=== PATIENT | female | born 1950 | race Caucasian/White ===

== ENCOUNTER 2019-09-20 10:43 | Emergency (ER) | payer OTHER, MEDICAID ==
[~2019-09-20] VITALS: Ht 157.5 cm; Wt 50.8 kg
[2019-09-20 10:45] VITALS: BP 122/55
--- NOTE | 2019-09-20 10:53 | NUR ---
Patient transferred to bed 1 via wheelchair by caregiver. RN evaluating the patient at bedside.
--- NOTE | 2019-09-20 11:08 | NUR ---
TO ED WITH CAREGIVER WITH C/O WITNESSED SEIZURE. CAREGIVER STATES PT WAS BEING SEEN AT [facility] FOR N/V AND HAD A SEIZURE X 3 AT [facility]RGENT CARE. NO ORAL TRAUMA NOTED. PT IS AT BASELINE PER CAREGIVER. PT TRANSFERED FROM W/C TO BED AND SEIZURE PRECAUTIONS IMPLEMENTED. IN BED FOR MD BAZZI.
[2019-09-20] MEDS ORDERED: NACL 0.9% 1,000 ML IV ONE (11:20)
[2019-09-20] MEDS ORDERED: ONDANSETRON 4 MG/2 ML VIAL IVP ONE (11:20)
[2019-09-20 11:45] LABS: BASOPHILS % (AUTO) 0.3 % (0.0-2.0); EOSINOPHILS # (AUTO) 0.2 K/uL (0-0.4); EOSINOPHILS % (AUTO) 3.8 % (0.0-4.0); HEMATOCRIT 37.6 % (36-48); HEMOGLOBIN 12.3 g/dL (12.0-16.0); LYMPHOCYTES # (AUTO) 1.7 K/uL (2.5-16.5); LYMPHOCYTES % (AUTO) 31.9 % (20.5-51.1); MEAN CORPUSCULAR HEMOGLOBIN 31 pg (27-31); MEAN CORPUSCULAR HGB CONC 33 g/dL (33-37); MEAN CORPUSCULAR VOLUME 94.3 fL (80-94); MONOCYTES # (AUTO) 0.5 K/uL (0.8-1.0); MONOCYTES % (AUTO) 8.7 % (1.7-9.3); NEUTROPHILS # (AUTO) 2.9 K/uL (1.8-7.7); NEUTROPHILS % (AUTO) 55.3 % (42.2-75.2); PLATELET COUNT (AUTO) 340 K/uL (140-450); RED BLOOD CELL COUNT(AUTO) 3.99 MIL/uL (4.20-5.40); RED CELL DISTRIBUTION WIDTH 12.3 % (11.6-13.7); WHITE BLOOD COUNT (AUTO) 5.2 K/uL (4.8-10.8)
[2019-09-20 12:09] LABS: PROTHROMBIN TIME 9.7 secs (10.8-13.4)
[2019-09-20] MEDS ORDERED: BENA10TA17 PO (12:19)
[2019-09-20] MEDS ORDERED: CLOP75TA55 PO (12:19)
[2019-09-20] MEDS ORDERED: [UNRECOGNIZED DRUG - CODE] PO (12:19)
[2019-09-20] MEDS ORDERED: LEVO100P IV (12:19)
[2019-09-20] MEDS ORDERED: CARB200T4 PO (12:19)
[2019-09-20] MEDS ORDERED: VITD400 PO (12:19)
[2019-09-20] MEDS ORDERED: ACET-2619 PO (12:19)
[2019-09-20] MEDS ORDERED: BEN50 PO (12:19)
[2019-09-20] MEDS ORDERED: POLY1POW MC (12:19)
[2019-09-20] MEDS ORDERED: DIAZ1KIT2 RC (12:19)
[2019-09-20] MEDS ORDERED: LAM200 PO (12:19)
[2019-09-20] MEDS ORDERED: CARB400T PO (12:19)
[2019-09-20] MEDS ORDERED: DOCU100C16 PO (12:19)
[2019-09-20] MEDS ORDERED: ASPI-1718 PO (12:19)
[2019-09-20] MEDS ORDERED: ATOR20TA PO (12:19)
[2019-09-20 12:25] LABS: ANION GAP 16.1 (8-16); CARBON DIOXIDE 27.9 mmol/L (21-32)
[2019-09-20 12:26] LABS: CREATININE 1.2 mg/dL (0.6-1.3); TOTAL BILIRUBIN 0.4 mg/dL (0.0-1.0)
[2019-09-20 12:27] LABS: ALBUMIN 3.6 g/dL (3.4-5.0)
--- NOTE | 2019-09-20 14:37 | NUR ---
IN BED, CAREGIVER AT BEDSIDE. REMAINS CALM AND COOPERATIVE.
[2019-09-20 14:49] VITALS: BP 131/74
--- NOTE | 2019-09-20 14:49 | NUR ---
Note undone in EDM - 09/20/19 at 1450 by JARAD Patient discharged with v/s stable. Written and verbal after care instructions given and explained. Patient alert, oriented and verbalized understanding of instructions. Ambulatory with steady gait. All questions addressed prior to discharge. ID band removed. Patient advised to follow up with PMD. Rx of PROMETHAZINE given. Patient educated on indication of medication including possible reaction and side effects. Opportunity to ask questions provided and answered.
--- NOTE | 2019-09-20 14:49 | NUR ---
IV removed, catheter intact and site benign. Applied folded 4x4 gauze and tape to stop bleeding.
--- NOTE | 2019-09-20 14:50 | NUR ---
Patient discharged with v/s stable. Written and verbal after care instructions given and explained. Patient alert, oriented and verbalized understanding of instructions. Wheel Chair Assisted with by caregiver. All questions addressed prior to discharge. ID band removed. Patient advised to follow up with PMD. Rx of PROMETHAZINE given. Patient educated on indication of medication including possible reaction and side effects. Opportunity to ask questions provided and answered.
[2019-10-06] MEDS ORDERED: CARB300C8 PO (17:51)
== END 2019-09-20 14:50 ==
LOC: MED 10:43
DX: G40.909 Epilepsy, unspecified, not intractable, without status epilepticus (principal); R11.2 Nausea with vomiting, unspecified; F73 Profound intellectual disabilities; R14.0 Abdominal distension (gaseous); E03.9 Hypothyroidism, unspecified; Z79.899 Other long term (current) drug therapy; Z79.01 Long term (current) use of anticoagulants; Z79.82 Long term (current) use of aspirin
CPT/HCPCS: 36415; 70450; 71045; 80053; 80156; 83690; 84484; 85025; 85610; 85730; 93005; 96361; 96374; 99284; J2405; J7030; Q0092; C1758

== ENCOUNTER 2019-10-04 11:04 | Emergency (ER) | payer OTHER, MEDICAID ==
[~2019-10-04] VITALS: Ht 152.4 cm; Wt 46.3 kg
[~2019-10-04 11:04] MED LIST: ACET-2619 PO; ASPI-1718 PO; ATOR20TA PO; BEN50 PO; BENA10TA17 PO; CARB200T4 PO; CARB400T PO; CLOP75TA55 PO; DIAZ1KIT2 RC; DOCU100C16 PO; LAM200 PO; LEVO100P IV; POLY1POW MC; VITD400 PO; [UNRECOGNIZED DRUG - CODE] PO
[2019-10-04 11:21] VITALS: BP 129/56
--- NOTE | 2019-10-04 11:26 | NUR ---
Patient transferred to bed 10 via wheelchair by tech. RN evaluating patient at bedside.
--- NOTE | 2019-10-04 11:32 | NUR ---
BIB CAREGIVER WITH C/O LETHARGY, LACK OF APPETITE, AND WEIGHT LOSS. PER CAREGIVER, PT IS WEIGHED EVERY WEEK AND HAS LOST 4 LBS IN LAST WEEK. BOWEL SOUNDS HYPOACTIVE IN ALL 4 QUADRANTS, ABDOMEN FLAT AND SOFT, NON-TENDER TO TOUCH. PT IS INCONTINENT WITH A HX OF UTI'S. PTS ARMS CONTRACTED. USES A WHEELCHAIR. PT RESPONDS TO VERBAL STIMULI, NODS HEAD TO YES AND NO QUESTIONS AND WILL RESPOND IN SHORT SENTENCES.-PER CAREGIVER, THIS IS PT'S BASELINE. VS STABLE. PT IS ALERT AND AWAKE. BED IS DOWN, LOCKED, BED RAIL X 1, ERMD TO SEE PT. HX: SEIZURES, HYPOTHYROID, RENAL CELL CARCINOMA, R NEPHRECTOMY, HYPONATREMIA RX: SEE MED LIST
[2019-10-04] MEDS ORDERED: NACL 0.9% 1,000 ML IV ONE (11:45)
--- NOTE | 2019-10-04 11:45 | NUR ---
LAST BM WAS 10/01/19, PER CAREGIVER
--- NOTE | 2019-10-04 11:57 | NUR ---
STUDENT AND INSTRUCTOR AT BEDSIDE FOR URINE STRAIGHT CATH
--- NOTE | 2019-10-04 12:10 | NUR ---
# 14 FR Urinary catheter inserted utilizing sterile technique. Immediate return of 50 ml ORANGE urine noted. Urine sample collected and sent to lab. Procedure completed by students and instructor.
--- NOTE | 2019-10-04 12:13 | NUR ---
LAB AT BEDSIDE
--- NOTE | 2019-10-04 12:25 | NUR ---
Jaye zepeda in [facility] - 10/04/19 at 1225 by [email or web address] EMT AT [facility]
--- NOTE | 2019-10-04 12:25 | NUR ---
NS STARTED IN PTS L HAND, 24 GAUGE
[2019-10-04 12:38] LABS: BASOPHILS % (AUTO) 0.3 % (0.0-2.0); EOSINOPHILS # (AUTO) 0.5 K/uL (0-0.4); EOSINOPHILS % (AUTO) 9.2 % (0.0-4.0); HEMATOCRIT 36.8 % (36-48); HEMOGLOBIN 12.3 g/dL (12.0-16.0); LYMPHOCYTES # (AUTO) 1.8 K/uL (2.5-16.5); LYMPHOCYTES % (AUTO) 31.9 % (20.5-51.1); MEAN CORPUSCULAR HEMOGLOBIN 31 pg (27-31); MEAN CORPUSCULAR HGB CONC 33 g/dL (33-37); MEAN CORPUSCULAR VOLUME 93.7 fL (80-94); MONOCYTES # (AUTO) 0.5 K/uL (0.8-1.0); MONOCYTES % (AUTO) 8.7 % (1.7-9.3); NEUTROPHILS # (AUTO) 2.9 K/uL (1.8-7.7); NEUTROPHILS % (AUTO) 49.9 % (42.2-75.2); PLATELET COUNT (AUTO) 354 K/uL (140-450); RED BLOOD CELL COUNT(AUTO) 3.93 MIL/uL (4.20-5.40); RED CELL DISTRIBUTION WIDTH 12.5 % (11.6-13.7); WHITE BLOOD COUNT (AUTO) 5.7 K/uL (4.8-10.8)
--- NOTE | 2019-10-04 12:42 | NUR ---
VS STABLE AT THIS TIME. CAREGIVER AT BEDSIDE. NO DISTRESS NOTED
[2019-10-04 12:44] LABS: ANION GAP 11.4 (8-16); CARBON DIOXIDE 30.1 mmol/L (21-32); CREATININE 1.2 mg/dL (0.6-1.3); POTASSIUM 4.5 mmol/L (3.5-5.1)
--- NOTE | 2019-10-04 12:44 | NUR ---
XRAY AT BEDSIDE
[2019-10-04 12:48] LABS: APPEARANCE,URINE CLOUDY (CLEAR); BILIRUBIN,URINE 1+ (NEGATIVE); BLOOD, URINE NEGATIVE (NEGATIVE); COLOR,URINE YELLOW (YELLOW); LEUKOCYTE ESTERASE ,URINE TRACE (NEGATIVE); NITRITE, URINE NEGATIVE (NEGATIVE); PH,URINE 5.5 (5.0-9.0); UGLUCOSE NEGATIVE (NEGATIVE)
[2019-10-04 12:49] LABS: ALBUMIN 3.4 g/dL (3.4-5.0); TOTAL BILIRUBIN 0.2 mg/dL (0.0-1.0)
--- NOTE | 2019-10-04 12:49 | NUR ---
PT GOING TO CT VIA [facility]
--- NOTE | 2019-10-04 13:00 | NUR ---
Patient returned from CT scan. RN re-evaluating patient at bedside.
[2019-10-04 13:04] LABS: RBC,URINE 0-5 /HPF (0-5)
[2019-10-04 13:05] LABS: URINE AMORPHOUS URATE 2+ /HPF (None Seen)
[2019-10-04] MEDS ORDERED: cefTRIAXone 1,000 MG in LIDOCAINE MPF 1% 2.1 ML IM ONE (13:25)
--- NOTE | 2019-10-04 14:32 | NUR ---
Patient discharged with v/s stable. Written and verbal after care instructions given and explained. Patient alert, oriented and verbalized understanding of instructions. Wheel Chair Assisted with by caregiver. All questions addressed prior to discharge. ID band removed. Patient advised to follow up with PMD. Rx of KEFLEX given. Patient educated on indication of medication including possible reaction and side effects. Opportunity to ask questions provided and answered.
[2019-10-04 14:38] VITALS: BP 145/64
== END 2019-10-04 14:32 ==
LOC: MED 11:04
DX: N39.0 Urinary tract infection, site not specified (principal); R41.82 Altered mental status, unspecified; E03.9 Hypothyroidism, unspecified; Z86.69 Personal history of other diseases of the nervous system and sense organs; Z98.890 Other specified postprocedural states; Z79.899 Other long term (current) drug therapy; Z79.01 Long term (current) use of anticoagulants; Z79.82 Long term (current) use of aspirin
CPT/HCPCS: 36415; 70450; 71045; 80053; 81001; 84484; 85025; 87086; 93005; 96361; 96365; 99284; C1758; J0696; J2001; J7030; Q0092

== ENCOUNTER 2019-10-06 16:04 | Inpatient (IN) | payer OTHER, MEDICAID ==
[~2019-10-06] VITALS: Ht 154.9 cm; Wt 47.6 kg
[~2019-10-06 16:04] MED LIST changes: +HYDRAGUARD CREAM TP PRN
[2019-10-06 16:12] VITALS: BP 155/100
--- NOTE | 2019-10-06 16:13 | NUR ---
Pt w/c assisted to bed 1.
[2019-10-06 16:14] VITALS: BP 123/54
--- NOTE | 2019-10-06 16:20 | NUR ---
69 Y/O F PRESENTS TO ER WITH WEB MANAGER C/O BACK PAIN AND LOSS OF APPETITE. WEB MANAGER REPORTS RECENT WEIGHT LOSS AND NOT EATING MUCH. PT WAS SEEN AT [facility] ON 10/04/19 AND DX WITH UTI, RX KEFLEX 500MG. PT IS ABLE TO ANSWER QUESTIONS BY SHAKING HER HEAD YES OR NO QUESTIONS. WHEN ASKED IF PT WAS IN PAIN, PT SHOOK HER HEAD NO. PT HAS INTELLECTUAL DISABILITY. PT IN INCONTINENT AND WEARING BRIEFS. NO SKIN BREAKDOWN NOTED. HOB ELEVATED, BED IN LOWEST POSITION, BED RAILS UP X2. ERMD AT BEDSIDE. ALLERGIES: NKA MED HX: INTELLECTUAL DISABILITY, HYPOTHYROIDISM, MYOPIA, SEIZURE DISORDER, MILD ASPIRATION RISK
--- NOTE | 2019-10-06 16:22 | NUR ---
DR. GALLO AT BEDSIDE EVALUATING PATIENT.
--- NOTE | 2019-10-06 16:25 | NUR ---
SEIZURE PRECAUTIONS INITIATED
[2019-10-06] MEDS ORDERED: NACL 0.9% 500 ML IV SCH (16:32)
--- NOTE | 2019-10-06 16:50 | NUR ---
LAB AT BEDSIDE
[2019-10-06 17:07] LABS: BASOPHILS % (AUTO) 0.2 % (0.0-2.0); EOSINOPHILS # (AUTO) 0.3 K/uL (0-0.4); EOSINOPHILS % (AUTO) 2.4 % (0.0-4.0); HEMATOCRIT 34.4 % (36-48); HEMOGLOBIN 11.2 g/dL (12.0-16.0); LYMPHOCYTES # (AUTO) 1.2 K/uL (2.5-16.5); LYMPHOCYTES % (AUTO) 10.6 % (20.5-51.1); MEAN CORPUSCULAR HEMOGLOBIN 31 pg (27-31); MEAN CORPUSCULAR HGB CONC 33 g/dL (33-37); MEAN CORPUSCULAR VOLUME 94.6 fL (80-94); MONOCYTES # (AUTO) 0.6 K/uL (0.8-1.0); MONOCYTES % (AUTO) 5.1 % (1.7-9.3); NEUTROPHILS # (AUTO) 9.5 K/uL (1.8-7.7); NEUTROPHILS % (AUTO) 81.7 % (42.2-75.2); PLATELET COUNT (AUTO) 298 K/uL (140-450); RED BLOOD CELL COUNT(AUTO) 3.63 MIL/uL (4.20-5.40); RED CELL DISTRIBUTION WIDTH 12.5 % (11.6-13.7); WHITE BLOOD COUNT (AUTO) 11.7 K/uL (4.8-10.8)
--- NOTE | 2019-10-06 17:29 | NUR ---
PT STRAIGHT CATHED WITH 15 SPANISH CATHETER. 40 ML COLLECTED RUTH ANN, CLEAR. TOLERATED PROCEDURE WELL.
--- NOTE | 2019-10-06 17:35 | NUR ---
[facility]ICARE PROVIDED. PT CLEAN, DRY AND REPOSITIONED.
[2019-10-06 17:39] LABS: PROTHROMBIN TIME 9.2 secs (10.8-13.4)
[2019-10-06] MEDS ORDERED: VITD1000 PO (17:51)
[2019-10-06] MEDS ORDERED: LEVO0.173 PO (17:51)
[2019-10-06] MEDS ORDERED: BEN50 PO (17:51)
[2019-10-06] MEDS ORDERED: CARB300C5 PO (17:51)
[2019-10-06] MEDS ORDERED: BISA10SU27 RC (17:51)
[2019-10-06] MEDS ORDERED: MIRABULK PO (17:51)
[2019-10-06] MEDS ORDERED: DIAZEPAM PR (17:51)
[2019-10-06] MEDS ORDERED: LAMO100T PO (17:51)
[2019-10-06] MEDS ORDERED: ACET-2619 PO (17:51)
--- NOTE | 2019-10-06 18:00 | NUR ---
XRAY AT BEDSIDE
--- NOTE | 2019-10-06 18:04 | NUR ---
CONTACT INFORMATION FROM [facility] Q: GREGG SEATING UPHOLSTERER: RACHID
[2019-10-06 18:10] LABS: ANION GAP 14.1 (8-16); CARBON DIOXIDE 28.7 mmol/L (21-32); CREATININE 1.1 mg/dL (0.6-1.3); POTASSIUM 4.8 mmol/L (3.5-5.1)
--- NOTE | 2019-10-06 18:18 | NUR ---
PT RESTING IN BED, WITH EYES OPEN. VSS. QUALITATIVE FIELD PROJECT MANAGER AT BEDSIDE. WILL CONTINUE TO MONITOR.
[2019-10-06 18:26] LABS: ALBUMIN 3.2 g/dL (3.4-5.0); TOTAL BILIRUBIN 0.3 mg/dL (0.0-1.0)
[2019-10-06 18:28] LABS: APPEARANCE,URINE CLEAR (CLEAR); BILIRUBIN,URINE NEGATIVE (NEGATIVE); BLOOD, URINE NEGATIVE (NEGATIVE); COLOR,URINE YELLOW (YELLOW); LEUKOCYTE ESTERASE ,URINE NEGATIVE (NEGATIVE); NITRITE, URINE NEGATIVE (NEGATIVE); UGLUCOSE NEGATIVE (NEGATIVE)
[2019-10-06] MEDS ORDERED: MORPHINE SULFATE 2 MG/ML SYR IVP PRN (19:15)
[2019-10-06] MEDS ORDERED: HYDROcodone/APAP 5/325 MG 1 TAB TAB PO PRN (19:15)
[2019-10-06] MEDS ORDERED: ONDANSETRON 4 MG/2 ML VIAL IM/IVP PRN (19:15)
[2019-10-06] MEDS ORDERED: LORazepam 2 MG/ML VIAL IM/IVP PRN (19:15)
[2019-10-06] MEDS ORDERED: ACETAMINOPHEN 325 MG TAB PO PRN ×2 (19:15→20:40)
[2019-10-06] MEDS ORDERED: DOCUSATE SODIUM 100 MG GELCAP PO PRN (19:15)
--- NOTE | 2019-10-06 19:25 | NUR ---
Patient will be admitted to care of DR. BECKWITH. Admited to TELE. Will go to room 123B. Belongings list completed. Report given to YUSRA MEJIA.
--- NOTE | 2019-10-06 19:25 | NUR ---
RECEIVED BEDSIDE REPORT FROM PREFABRICATORYUSRA KATZ. PT IS AWAKE AND ALERT. PMH INTELLECTUAL DISABILITY CAN ANSWER YES AND NO. DX FAILURE TO THRIVE. PER STEEL BARREL REAMER LEILA PT HAS LOST 20LB IN PAST 2MO D/T LOW APPETITE. PATIENT WITH REDNESS ON BUTTOCKS. LUNG SOUNDS CLEAR. ON RA RESPIRATIONS ARE EQUAL AND UNLABORED. PT IS BEDREST. ON FALL PRECAUTION. SZ AND ASPIRATION PRECAUTION. VS: 111/53 HR 90 RR 16 100%RA, 97.9 FLACC 0. MRSA SWAB OBTAINED. ORIENTED PT TO ROOM,STAFF AND CALL LIGHT. HOB ELEVATED. BED ALARM ON. IV ON RAC 22G IVF PER ORDERS. POC DISCUSSED WITH PT AND STEEL BARREL REAMER. WILL ROUND FREQUENTLY.
--- NOTE | 2019-10-06 19:25 | NUR ---
TRANSFER OF CARE AND REPORT GIVEN TO YUSRA MEJIA.
[2019-10-06 20:00] VITALS: BP 111/53
[2019-10-06 20:02] LABS: CHOL/HDL RATIO 2.1 (1-4.5); MAGNESIUM 2.1 mg/dL (1.8-2.4); PHOSPHORUS 3.5 mg/dL (2.5-4.9)
[2019-10-06] MEDS: NACL 0.9% 1,000 ML IV SCH (20:12)
--- NOTE | 2019-10-06 20:39 | NUR ---
PATIENT LAYING IN BED WATCHING TV. NO S/S OF DISTRESS WILL CONTINUE TO MONITOR.
[2019-10-06] MEDS ORDERED: BISACODYL 10 MG SUPP RC PRN (20:40)
[2019-10-06] MEDS ORDERED: DIAZEPAM 5 MG TAB PO PRN (20:40)
[2019-10-06] MEDS ORDERED: diphenhydrAMINE 50 MG CAP PO PRN (20:40)
[2019-10-06] MEDS ORDERED: carBAMazepine 200 MG TAB PO SCH (21:00)
[2019-10-06] MEDS ORDERED: ZOLPIDEM 5 MG TAB PO PRN (21:00)
[2019-10-06] MEDS: BENAZEPRIL 10 MG TAB PO SCH (21:00)
[2019-10-06] MEDS: ATORVASTATIN 20 MG TAB PO SCH (21:45)
[2019-10-06] MEDS: lamoTRIgine 300 MG, lamoTRIgine 50 MG PO SCH ×2 (21:45)
--- NOTE | 2019-10-06 23:00 | NUR ---
PATIENT KEEPS TAKING TELE OFF AND PULLED IV OUT. IV CATH IS INTACT MINIMAL BLEEDING. EDUCATED PATIENT ON NEED TO KEEP TELE. NEW IV INSERTED ON LAC 24G ON SECOND ATTEMPT. PT TOLERATED WELL. WRAPPED IV AND PT VERBALIZED UNDERSTANDING. WILL CONTINUE TO MONITOR.
[2019-10-07] VITALS: BP 134/46
[2019-10-07] MEDS ORDERED: cefTRIAXone 1,000 MG VIAL ONE (00:08)
[2019-10-07] MEDS: HYDRAGUARD CREAM TP SCH ×4 (00:16→13:12)
--- NOTE | 2019-10-07 00:19 | NUR ---
VSS. ROCEPHIN IS INFUSING PER ORDERS. WILL CONTINUE TO MONITOR.
--- NOTE | 2019-10-07 00:59 | NUR ---
CLEANS PATIENT SACRAL AREA. APPLIED HYDRAGUARD AND OPTIFOAM. PT TOLERATED WELL. WILL CONTINUE TO MONITOR.
--- NOTE | 2019-10-07 02:30 | NUR ---
PATIENT IS SLEEPING COMFORTABLY IN BED WITH EYES CLOSED. NO S/S OF DISTRESS. CALL LIGHT IS WITHIN REACH. WILL CONTINUE TO MONITOR.
[2019-10-07 04:00] VITALS: BP 119/46
--- NOTE | 2019-10-07 04:00 | NUR ---
VITAL SIGNS ARE WITHIN NORMAL LIMITS. NO S/S OF DISTRESS. WILL CONTINUE TO MONITOR
[2019-10-07 05:34] LABS: BASOPHILS % (AUTO) 0.1 % (0.0-2.0); EOSINOPHILS # (AUTO) 0.6 K/uL (0-0.4); EOSINOPHILS % (AUTO) 6.2 % (0.0-4.0); HEMATOCRIT 29.6 % (36-48); HEMOGLOBIN 9.9 g/dL (12.0-16.0); LYMPHOCYTES # (AUTO) 2.2 K/uL (2.5-16.5); LYMPHOCYTES % (AUTO) 24.4 % (20.5-51.1); MEAN CORPUSCULAR HEMOGLOBIN 32 pg (27-31); MEAN CORPUSCULAR HGB CONC 34 g/dL (33-37); MEAN CORPUSCULAR VOLUME 94.7 fL (80-94); MONOCYTES # (AUTO) 0.7 K/uL (0.8-1.0); MONOCYTES % (AUTO) 8.1 % (1.7-9.3); NEUTROPHILS # (AUTO) 5.6 K/uL (1.8-7.7); NEUTROPHILS % (AUTO) 61.2 % (42.2-75.2); PLATELET COUNT (AUTO) 284 K/uL (140-450); RED BLOOD CELL COUNT(AUTO) 3.13 MIL/uL (4.20-5.40); RED CELL DISTRIBUTION WIDTH 12.5 % (11.6-13.7); WHITE BLOOD COUNT (AUTO) 9.2 K/uL (4.8-10.8)
--- NOTE | 2019-10-07 06:00 | NUR ---
OFF UNIT FOR CT.
[2019-10-07] MEDS ORDERED: LORazepam 2 MG/ML VIAL IVP PRN (06:15)
--- NOTE | 2019-10-07 06:25 | NUR ---
PATIENT BACK FROM CT. PT TOLERATED WELL. SAFETY MEASURES ARE IN PLACE.
[2019-10-07] MEDS ORDERED: DIAZ10TA7 RC (06:31)
[2019-10-07 07:13] LABS: ANION GAP 13.6 (8-16); CARBON DIOXIDE 25.7 mmol/L (21-32); POTASSIUM 4.3 mmol/L (3.5-5.1)
--- NOTE | 2019-10-07 07:19 | NUR ---
GAVE BEDSIDE REPORT TO DAY RN. PT ENDORSED IN STABLE CONDITION.
--- NOTE | 2019-10-07 07:21 | NUR ---
RECEIVED PT FROM NIGHT NURSE. PT WITH EYES CLOSED IN BED, AROUSABLE TO SPEECH. AAOX1. RESPIRATIONS EVEN AND UNLABORED ON ROOM AIR, CLEAR BREATH SOUNDS. IV IN PLACE L AC 24G PATENT AND ASYMPTOMATIC INFUSING PER ORDER. PT ON PUREE DIET. INCONTINENT. SACRAL REDNESS PRESENT ON ADMISSION. SAFETY MEASURES IN PLACE, CALL LIGHT WITHIN REACH. WILL CONTINUE TO MONITOR.
[2019-10-07 08:00] VITALS: BP 113/44
--- NOTE | 2019-10-07 08:42 | NUR ---
PATIENT HAS BEEN SCREENED AND CATEGORIZED HIGH NUTRITION RISK. PATIENT WILL BE SEEN WITHIN 1-2 DAYS OF ADMISSION. 10/07/19-10/08/[address]
[2019-10-07] MEDS ORDERED: carBAMazepine 200 MG TAB PO SCH (09:00)
[2019-10-07] MEDS ORDERED: BISACODYL 10 MG SUPP RC SCH (09:00)
[2019-10-07] MEDS: BENAZEPRIL 10 MG TAB PO SCH ×2 (09:00→20:26)
[2019-10-07] MEDS ORDERED: CALCIUM CIT/VIT-D 315MG/200IU 1 TAB PO SCH (09:00)
[2019-10-07] MEDS ORDERED: CALCIUM CITRATE PO SCH (09:00)
[2019-10-07] MEDS ORDERED: DOCUSATE SODIUM 100 MG GELCAP PO SCH (09:00)
[2019-10-07] MEDS: AZITHROMYCIN 250 MG in DEXTROSE 5% 250 ML IV SCH (09:14)
[2019-10-07] MEDS: POLYETHYLENE GLYCOL 17 GM/PKT PO SCH (09:14)
[2019-10-07] MEDS: lamoTRIgine 300 MG, lamoTRIgine 50 MG PO SCH ×4 (09:15→20:27)
--- NOTE | 2019-10-07 09:20 | NUR ---
RECEIVED CALL FROM PT SHEET METAL INSTALLER AT [facility] / EXPRESSING CONCERN FOR PT TREATMENT. REQUESTED TO BE CONTACTED BY PTS SHEET METAL INSTALLER. SHE EXPRESSED THAT FAMILY MEMBERS ARE OUT OF STATE AND THAT SHE WILL BE MANAGING CARE FOR PT. SHE IS NOT LISTED PT CONTACT ON ADMISSION PAPERS.
[2019-10-07] MEDS: CHOLECALCIFEROL 1,000 IU TAB PO SCH (09:21)
[2019-10-07] MEDS ORDERED: CALCIUM CARBONATE 500 MG TAB PO SCH (09:22)
[2019-10-07] MEDS: carBAMazepine 200 MG TAB PO SCH ×2 (09:23→20:27)
[2019-10-07] MEDS: CLOPIDOGREL 75 MG TAB PO SCH (09:23)
[2019-10-07] MEDS: ASPIRIN 81 MG TAB.CHEW PO SCH (09:24)
[2019-10-07] MEDS: DOCUSATE SODIUM 100 MG GELCAP PO SCH ×2 (09:24→20:26)
[2019-10-07] MEDS: LACTOBACILLUS RHAMNOSUS GG 1 EACH CAP PO SCH (09:24)
[2019-10-07] MEDS: FERROUS GLUCONATE 324 MG TAB PO SCH (09:27)
--- NOTE | 2019-10-07 09:44 | NUR ---
MEDICATIONS ADMINISTERED PER ORDER. PT TOLERATED WELL WILL CONTINUE TO MONITOR.
--- NOTE | 2019-10-07 10:50 | NUR ---
CALLED WAGNER WHITFIELD, PTS DRUG ENFORCEMENT ADMINISTRATION AGENT, REQUESTING A SIGNATURE FOR RELEASE OF MEDICAL RECORDS. SHE SAID SHE CANNOT SIGN BUT CAN ARRANGE FOR MEDICAL RECORDS TO BE SENT TO [facility]. SHE SAID SHE WOULD LET ME KNOW SOON MEDICAL RECORDS ARE SENT
--- NOTE | 2019-10-07 11:44 | NUR ---
10/07/19 RD INITIAL ASSESSMENT COMPLETED PLEASE REFER TO NUTRITION ASSESSMENT UNDER CARE ACTIVITY FOR ESTIMATED NUTRITIONAL NEEDS. 1. CONTINUE PUREE DIET WITH NECTAR THICK LIQUIDS TOLERATED 2. CONTINUE ENSURE TID NTL 3. RECOMMEND MULTIVITAMIN ONCE DAILY FOR POSSIBLE PRESSURE ULCER 4. IF PO INTAKE DOES NOT IMPROVE OVER 50%, CONSIDER ENTERAL NUTRITION 5. RD TO FOLLOW-UP 2-3 DAYS, HIGH RISK ELOISA VANG RD
[2019-10-07] MEDS: NACL 0.9% 1,000 ML IV SCH (11:53)
[2019-10-07 12:00] VITALS: BP 99/58
--- NOTE | 2019-10-07 13:28 | NUR ---
WOUND CARE EVALUATION NOTE: SKIN ASSESSMENT DONE WITH PRIMARY RN , PT. INCONTINENT OF BOWEL X1 DURING ASSESSMENT,SACRALCOCCYX SKIN INTACT WITH BLANCHABLE REDNESS. RIGHT AND LEFT BUTTOCK WITH UN-KNOWN WOUND HX AREAS 100% RESURFACE HEALING SCARS WOUND REMODELING STAGE, MOIST, JOLEEN-WOUND SKIN DRY AND CLEAN. POC DISCUSSED WITH DR. GOLDMAN AND PRIMARY RN. RECOMMENDATIONS -CLEANSE R/L BUTTOCKS GENTLY WITH NS. PAT DRY APPLY HYDRAGUARD AND COVER WITH OPTIFORM QD AND PRN IF SOILING -APPLY HYDRAGUARD TO SACRALCOCCYX BID AND ED PHYSICIANS -KEEP SKIN DRY AND CLEAN AT ALL TIME. -OFFLOADING SACRALCOCCYX AREA. -ELEVATED BLE WITH PILLOWS UNLESS OTHERWISE CONTRAINDICATED -PRESSURE REDISTRIBUTION SURFACE BY USING PILLOWS/ PORTIONER
--- NOTE | 2019-10-07 13:30 | NUR ---
WOUND CARE DONE WITH WOUND CARE NURSE SHAVON. PT HAD A BOWEL MOVEMENT AND EXPRESSES THAT SHE FEELS BETTER NOW.
--- NOTE | 2019-10-07 13:45 | NUR ---
PT REPOSITIONED AT THIS TIME. PT DENIES PAIN. NO DISTRESS NOTED. BED IN LOW POSITION. SAFETY MEASURES IN PLACE. CALL LIGHT WITHIN REACH. WILL CONTINUE TO MONITOR.
--- NOTE | 2019-10-07 14:32 | NUR ---
DC PLANNIN YRS OLD FEMALE PT ADMITTED FROM [facility] . PT BROUGHT BY SUBSTATION OPERATOR CONVERSION ,WITH A DX OF FAILURE TO THRIVE PATIENT IS MOSTLY BEDBOUND AND USES WHEELCHAIR TO GET AROUND. RECENTLY WAS DX WITH UTI AND TREATED WITH ABX .PT HAS A HX OF MENTALLY CHALLENGE, KIDNEY CA , SEIZURE. ADMINISTERED IVF CT HEAD ORDERED FNS CONSULT , US OF KIDNEY AND NEPHRO CONSULT . DC PLAN PER MD CONSULT AND WILL BE CONSULTED WITH WAGNER FROM [facility] [phone]. CM TO FOLLOW Addendum: 10/07/19 at 9144 by Bonnie Lynch CM DC PLANING : SPOKE WITH WAGNER FROM [facility] UPDATED PT'S CONDITION AND CT RESULT THE DC PLAN WAITING FOR THE ONCOLOGIST DR PETERS AND PER WAGNER PTIS GOING TO [facility]. CM TO F/U Addendum: 10/08/19 at 1647 by Bonnie Lynch CM DC PLANNING PER DR IRMA BAZZI CAN BE ORDERED AT [facility] PT IS ACCEPTED AT [facility] ROOM # 712B TO GIVE REPORT [phone] AND NOEL PSYCHOLOGIST CLINICAL BETWEEN 1-2PM ON 10/09/19 Addendum: 10/09/19 at 1127 by Vianca Agosto CM CONTACTED CHARITY OF [facility] AT [phone], SHE CONFIRMED PSYCHOLOGIST CLINICAL WITH NOEL WILL BE AT 1300 AND GOING TO THE SAME ROOM. CHARGE NURSE RENÉ MADE AWARE.
--- NOTE | 2019-10-07 15:10 | NUR ---
Terrazzo Laborer Note: Basic Screen: Yes High Risk DC Screen Yes Name: LEONARD Velasquez Relationship: BROTHER Prior ADL Needs Assistance Current Home Health Name/Tel: N/A Current DME/02 Name/Tel: WHEELCHAIR Current Hospice Name/Tel: N/A Current Dialysis Name/Tel: N/A Healthcare Decision Maker: Next of Kin Advance Directive No Physician Orders for Life Sustaining Treatment Form No Patient/Family Have Educational Needs No Information Taught: Advance Directive Person Taught: Caregiver Teaching Tools: Verbal Factors Affecting Learning: None Participation Level: Active Evaluation: Verbalizes Understanding Discipline: Case Mgt/Social Svcs Tentative Discharge Plan/Destination: No Needs Identified Tentative Discharge Plan Summary: Patient is a 69 year old female admitted for failure to thrive. Patient was admitted from [facility]. Patient has past medical hx of intellectual and developmental disabilities, seizure d/o, hyperthyroidism, and kidney cancer. NATY contacted DJ from [facility] [phone]. NATY verified demographics with SUE. SUE stated that patient's healthcare decision maker is brother Leonard Ramirez [phone]. SUE stated that patient is not conserved. SUE also stated that patient has C Worker Lety Albarado [phone] who is aware that patient has been hospitalized. Per SUE, [facility] does not accommodate IV antibiotics. Tentative discharge plan is for patient to go to SNF. No further needs identified. Signature: DEL Crenshaw Date: Oct 07, 2019 Time: 15:09
--- NOTE | 2019-10-07 15:23 | NUR ---
PT REPOSITIONED AT THIS TIME. PT DENIES PAIN. NO DISTRESS NOTED FLACC 0. SAFET MEASURES IN PLACE. BED IN LOW POSITION. WILL CONTINUE TO MONITOR.
[2019-10-07 16:00] VITALS: BP 105/36
--- NOTE | 2019-10-07 19:16 | NUR ---
BEDSIDE REPORT GIVEN TO NIGHT NRUSE FOR CONTINUITY OF CARE.
--- NOTE | 2019-10-07 19:17 | NUR ---
RECEIVED BEDSIDE REPORT FROM DAY RN. AAOX1. INTELLECTUAL DISABILITY ABLE TO MAKE NEEDS KNOWN. ANSWER SIMPLE QUESTIONS. RESPIRATIONS EVEN AND UNLABORED ON ROOM AIR, CLEAR BREATH SOUNDS. PT WITH NO IV ACCESS. PULLED IV OUT, IV CATH IS INTACT. WILL ATTEMPT TO INSERT NEW IV. ON PUREE DIET. INCONTINENT. SACRAL REDNESS PRESENT ON ADMISSION. DRESSING IS C/D/I FOR PROTECTIVE MEASURES. SAFETY MEASURES IN PLACE, CALL LIGHT WITHIN REACH. WILL CONTINUE TO MONITOR.
[2019-10-07 20:00] VITALS: BP 116/53
--- NOTE | 2019-10-07 20:26 | NUR ---
VSS: 116/53 HR 72 HELD LIZET LOTENSIN D/T LOW DBP. ALL OTHER LIZET MEDICATIONS GIVEN PER ORDERS CRUSHED WITH APPLESAUCE. PT TOLERATED WELL. WILL CONTINUE TO MONITOR.
[2019-10-07] MEDS: ATORVASTATIN 20 MG TAB PO SCH (20:27)
--- NOTE | 2019-10-07 22:00 | NUR ---
ATTEMPTED TO INSERT NEW IV X2 BUT UNSUCCESSFUL. WILL ASK ANOTHER RN TO ATTEMPT TO START IV. PT TOLERATED WELL. NO S/S OF DISTRESS.
[2019-10-08] VITALS: BP 154/51
--- NOTE | 2019-10-08 | NUR ---
VITAL SIGNS ARE WITHIN NORMAL LIMITS. NO S/S OF DISTRESS. ALL NEEDS MET AT THIS TIME. WILL CONTINUE TO MONITOR
[2019-10-08] MEDS: HYDRAGUARD CREAM TP SCH ×2 (01:13→14:35)
--- NOTE | 2019-10-08 01:52 | NUR ---
PATIENT IS RESTING COMFORTABLY IN BED. NO S/S OF RESPIRATORY DISTRESS. SAFETY MEASURES ARE IN PLACE.
[2019-10-08] MEDS: NACL 0.9% 1,000 ML IV SCH ×2 (03:14→21:13)
[2019-10-08 04:00] VITALS: BP 149/47
--- NOTE | 2019-10-08 04:08 | NUR ---
VITAL SIGNS ARE WITHIN NORMAL LIMITS. NO S/S OF DISTRESS. CALL LIGHT IS WITHIN REACH.
--- NOTE | 2019-10-08 05:48 | NUR ---
PT IS SLEEPING COMFORTABLY IN BED WITH EYES CLOSED. RESPIRATIONS ARE EQUAL AND UNLABORED. SAFETY MEASURES ARE IN PLACE.
[2019-10-08 06:38] LABS: BASOPHILS % (AUTO) 0.1 % (0.0-2.0); EOSINOPHILS # (AUTO) 0.6 K/uL (0-0.4); EOSINOPHILS % (AUTO) 8.2 % (0.0-4.0); HEMOGLOBIN 9.7 g/dL (12.0-16.0); LYMPHOCYTES % (AUTO) 27.5 % (20.5-51.1); MEAN CORPUSCULAR HEMOGLOBIN 31 pg (27-31); MEAN CORPUSCULAR HGB CONC 34 g/dL (33-37); MEAN CORPUSCULAR VOLUME 93.5 fL (80-94); MONOCYTES # (AUTO) 0.5 K/uL (0.8-1.0); MONOCYTES % (AUTO) 7.5 % (1.7-9.3); NEUTROPHILS # (AUTO) 4.1 K/uL (1.8-7.7); NEUTROPHILS % (AUTO) 56.7 % (42.2-75.2); PLATELET COUNT (AUTO) 242 K/uL (140-450); RED BLOOD CELL COUNT(AUTO) 3.11 MIL/uL (4.20-5.40); RED CELL DISTRIBUTION WIDTH 12.3 % (11.6-13.7); WHITE BLOOD COUNT (AUTO) 7.2 K/uL (4.8-10.8)
[2019-10-08 07:14] LABS: MAGNESIUM 1.7 mg/dL (1.8-2.4); PHOSPHORUS 3.3 mg/dL (2.5-4.9)
[2019-10-08 07:19] LABS: ANION GAP 13.5 (8-16); CARBON DIOXIDE 23.4 mmol/L (21-32); POTASSIUM 3.9 mmol/L (3.5-5.1)
--- NOTE | 2019-10-08 07:31 | NUR ---
GAVE BEDSIDE REPORT TO DAY SHIFT RN. PT ENDORSED IN STABLE CONDITION.
--- NOTE | 2019-10-08 07:32 | NUR ---
RECEIVED HAND OFF REPORT FROM PM RN PT AWAKE IN BED PT APPEARS STABLE AND IN NO APPARENT DISTRESS. ALL SAFETY MEASURES ARE IN PLACE WILL CONTINUE TO MONITOR.
[2019-10-08 08:07] LABS: FOLIC ACID 5.7 ng/mL (>3.0)
[2019-10-08 08:30] VITALS: BP 132/45
[2019-10-08] MEDS: MULTIVITAMIN 1 TAB PO SCH (09:26)
[2019-10-08] MEDS: BENAZEPRIL 10 MG TAB PO SCH ×2 (09:26→21:43)
[2019-10-08] MEDS: ASPIRIN 81 MG TAB.CHEW PO SCH (09:26)
[2019-10-08] MEDS: CALCIUM CARBONATE 500 MG TAB PO SCH (09:26)
[2019-10-08] MEDS: LACTOBACILLUS RHAMNOSUS GG 1 EACH CAP PO SCH (09:27)
[2019-10-08] MEDS: CLOPIDOGREL 75 MG TAB PO SCH (09:27)
[2019-10-08] MEDS: CHOLECALCIFEROL 1,000 IU TAB PO SCH (09:27)
[2019-10-08] MEDS: carBAMazepine 200 MG TAB PO SCH ×2 (09:27→21:44)
[2019-10-08] MEDS: DOCUSATE SODIUM 100 MG GELCAP PO SCH ×2 (09:27→21:42)
[2019-10-08] MEDS: POLYETHYLENE GLYCOL 17 GM/PKT PO SCH (09:28)
--- NOTE | 2019-10-08 09:34 | NUR ---
FREQUENT ROUNDING ON PT PT APPEARS STABLE AND IN NO APPARENT DISTRESS. ALL SAFETY MEASURES ARE IN PLACE WILL CONTINUE TO MONITOR
[2019-10-08] MEDS ORDERED: lamoTRIgine 25 MG TAB ONE (10:01)
[2019-10-08] MEDS: lamoTRIgine 300 MG, lamoTRIgine 50 MG PO SCH ×4 (10:02→21:45)
[2019-10-08] MEDS: AZITHROMYCIN 250 MG in DEXTROSE 5% 250 ML IV SCH (10:02)
--- NOTE | 2019-10-08 11:03 | NUR ---
FREQUENT ROUNDING ON PT PT APPEARS STABLE AND IN NO APPARENT DISTRESS. ALL SAFETY MEASURES ARE IN PLACE WILL CONTINUE TO MONITOR
--- NOTE | 2019-10-08 12:30 | NUR ---
SPOKE WITH PT SISTER IN LAW YOLANDA ON PT CHART. NOTIFIED HER ABOUT PT CONDITION AND NOTIFIED HER THAT THE NEW PLAN IS TO TRANSFER THE PT TO [facility]
[2019-10-08 12:59] VITALS: BP 139/51
--- NOTE | 2019-10-08 13:12 | NUR ---
FREQUENT ROUNDING ON PT PT APPEARS STABLE AND IN NO APPARENT DISTRESS. ALL SAFETY MEASURES ARE IN PLACE WILL CONTINUE TO MONITOR
[2019-10-08] MEDS ORDERED: MAGNESIUM OXIDE 400 MG TAB PO SCH (13:44)
[2019-10-08 16:00] VITALS: BP 135/60
--- NOTE | 2019-10-08 17:34 | NUR ---
FREQUENT ROUNDING ON PT PT STABLE AND IN NO APPARNT DISTRESS. ALL SAFETY MEASURES ARE IN PLACE
--- NOTE | 2019-10-08 19:21 | NUR ---
ENDORSED PT TO PM RN PT AWAKE IN BED PT APPEARS STABLE AND IN NO APPARENT DISTRESS. ALL SAFETY MEASURES ARE IN PLACE
--- NOTE | 2019-10-08 19:22 | NUR ---
RECEIVED REPORT FORM PANCHO RN DAYSHIFT NURSE AT BEDSIDE FOR CONTINUITY OF CARE, PT IN STABLE CONDITION.
[2019-10-08 20:00] VITALS: BP 173/52
--- NOTE | 2019-10-08 20:00 | NUR ---
PT IN BED IV SITE INTACT AND FLUSHED PATENT. SHE IS AOX1 NO S/S OF PAIN OR DISTRESS NOTED. LUNG SOUNDS CLEAR AND BOWEL SOUNDS HYPOACTIVE. V/S FOLLOWS : T 98.5 P 83 R 18 B/P 173/52 02 99% ON ROOM AIR.
--- NOTE | 2019-10-08 21:00 | NUR ---
PT WAS TURNED, CHANGED AND REPOSITIONED IN BED. SCHEDULED MEDICATION GIVEN . EDUCATION REGARDING MEDICATION PROVIDED BUT PT DIDN'T UNDERSTAND. PT GIVEN SCHEDULED COLACE, FOR ASSISTANCE WITH BM, LIPITOR FOR HLD , LOTENSIN FOR HTN AND LAMICTAL AND TEGRETOL FOR SEIZURES. ALL SEIZURE AND FALLS PROTOCOLS IN PLACE.
[2019-10-08] MEDS: ATORVASTATIN 20 MG TAB PO SCH (21:42)
[2019-10-09] VITALS: BP 136/52
[2019-10-09] MEDS: HYDRAGUARD CREAM TP SCH ×2 (00:02→10:58)
--- NOTE | 2019-10-09 00:15 | NUR ---
PT IN BED, IV SITE INTACT AND FLUSHED PATENT. PT WAS GIVEN ORDERED IV ABT ROCEPHIN. PT WAS ALSO TURNED, CHANGED AND REPOSITIONED IN BED. V/S FOLLOWS :T 97.8 P 80 R 18 B/P 136/52 02 98% ON ROOM AIR. ALL SEIZURE AND FALLS PRECAUTIONS IN PLACE, AND CALL LUJAN IN REACH.
--- NOTE | 2019-10-09 02:00 | NUR ---
PT IN BED ALL FALLS AND SEIZURE PRECAUTIONS NI PLACE AND PT SLEEPING RESTFULLY WITH NO S/S OF PAIN OR DISTRESS NOTED. ALL SEIZURE AND FALLS PRECAUTIONS IN PLACE.
[2019-10-09 04:00] VITALS: BP 130/42
[2019-10-09 06:29] LABS: ANION GAP 13.4 (8-16); CARBON DIOXIDE 23.8 mmol/L (21-32); CREATININE 0.8 mg/dL (0.6-1.3); POTASSIUM 4.2 mmol/L (3.5-5.1)
[2019-10-09 06:31] LABS: MAGNESIUM 1.7 mg/dL (1.8-2.4); PHOSPHORUS 3.2 mg/dL (2.5-4.9)
--- NOTE | 2019-10-09 06:44 | NUR ---
PT IN BED, SHE WAS TURNED, CHANGED AND REPOSITIONED PT GIVEN ORDERED ROCEPHIN IV ABT. V/S FOLLOWS T 97.8 P 80 R 18 B/P 136/52 02 98% ON ROOM AIR. ALL FALLS PRECAUTIONS IN PLACE.
[2019-10-09 06:55] LABS: BASOPHILS % (AUTO) 0.1 % (0.0-2.0); EOSINOPHILS # (AUTO) 0.6 K/uL (0-0.4); EOSINOPHILS % (AUTO) 7.9 % (0.0-4.0); HEMATOCRIT 27.3 % (36-48); HEMOGLOBIN 9.2 g/dL (12.0-16.0); LYMPHOCYTES # (AUTO) 2.2 K/uL (2.5-16.5); MEAN CORPUSCULAR HEMOGLOBIN 31 pg (27-31); MEAN CORPUSCULAR HGB CONC 34 g/dL (33-37); MEAN CORPUSCULAR VOLUME 92.9 fL (80-94); MONOCYTES # (AUTO) 0.5 K/uL (0.8-1.0); MONOCYTES % (AUTO) 7.6 % (1.7-9.3); NEUTROPHILS # (AUTO) 3.9 K/uL (1.8-7.7); NEUTROPHILS % (AUTO) 54.4 % (42.2-75.2); PLATELET COUNT (AUTO) 266 K/uL (140-450); RED BLOOD CELL COUNT(AUTO) 2.94 MIL/uL (4.20-5.40); RED CELL DISTRIBUTION WIDTH 12.2 % (11.6-13.7); WHITE BLOOD COUNT (AUTO) 7.2 K/uL (4.8-10.8)
--- NOTE | 2019-10-09 07:25 | NUR ---
Received bedside report from previous nurse. Upon arrival, patient was awake. Respirations even and unlabored with no SOB or respiratory distress and on room air. 24 G IV site in right hand clean and intact infusing NS at 60ml/hr. No complaints of pain or discomfort. Skin warm and dry to touch. Pt. has old sacral wounds otherwise skin is intact. Fall precautions in place. Call light within reach. Will continue to monitor
[2019-10-09 08:00] VITALS: BP 117/37
[2019-10-09] MEDS: FERROUS GLUCONATE 324 MG TAB PO SCH (10:34)
[2019-10-09] MEDS: AZITHROMYCIN 250 MG in DEXTROSE 5% 250 ML IV SCH (10:34)
[2019-10-09] MEDS: MULTIVITAMIN 1 TAB PO SCH (10:35)
[2019-10-09] MEDS: LACTOBACILLUS RHAMNOSUS GG 1 EACH CAP PO SCH (10:36)
[2019-10-09] MEDS: BENAZEPRIL 10 MG TAB PO SCH (10:36)
[2019-10-09] MEDS: carBAMazepine 200 MG TAB PO SCH (10:36)
[2019-10-09] MEDS: ASPIRIN 81 MG TAB.CHEW PO SCH (10:36)
[2019-10-09] MEDS ORDERED: lamoTRIgine 25 MG TAB ONE (10:41)
[2019-10-09] MEDS: lamoTRIgine 300 MG, lamoTRIgine 50 MG PO SCH ×2 (10:47)
[2019-10-09] MEDS: CLOPIDOGREL 75 MG TAB PO SCH (10:48)
[2019-10-09] MEDS: DOCUSATE SODIUM 100 MG GELCAP PO SCH (10:48)
[2019-10-09] MEDS: CHOLECALCIFEROL 1,000 IU TAB PO SCH (10:48)
[2019-10-09] MEDS: CALCIUM CARBONATE 500 MG TAB PO SCH (10:48)
[2019-10-09] MEDS: POLYETHYLENE GLYCOL 17 GM/PKT PO SCH (10:49)
[2019-10-09 12:00] VITALS: BP 142/57
--- NOTE | 2019-10-09 13:40 | NUR ---
PT IS GETTING TRANSFERRED TO [facility] FOR FURTHER IV ABX THERAPY. PT'S SISTER JO MADE AWARE. PHONE REPORT GIVEN TO MICHEL BLAKE, AT [facility]. IV SITE MAINTAINED, WRIST BAND REMOVED. PT LEFT IN STABLE CONDITION VIA [facility].
== END 2019-10-09 13:45 | DRG 686 ==
LOC: MED 16:04 → MTU 18:54
PROVIDERS: ADMIT General Practice; ATTEND General Practice
DX: C64.9 Malignant neoplasm of unspecified kidney, except renal pelvis (principal); N17.0 Acute kidney failure with tubular necrosis; J18.9 Pneumonia, unspecified organism; R65.10 Systemic inflammatory response syndrome (SIRS) of non-infectious origin without acute organ dysfunction; Z68.1 Body mass index [BMI] 19.9 or less, adult; E44.0 Moderate protein-calorie malnutrition; F72 Severe intellectual disabilities; E87.0 Hyperosmolality and hypernatremia; N39.0 Urinary tract infection, site not specified; C79.51 Secondary malignant neoplasm of bone; R62.7 Adult failure to thrive; L89.151 Pressure ulcer of sacral region, stage 1; E03.9 Hypothyroidism, unspecified; K59.00 Constipation, unspecified; M62.58 Muscle wasting and atrophy, not elsewhere classified, other site; D64.9 Anemia, unspecified; G40.909 Epilepsy, unspecified, not intractable, without status epilepticus; K92.9 Disease of digestive system, unspecified; Z79.899 Other long term (current) drug therapy; Z90.5 Acquired absence of kidney; Z90.49 Acquired absence of other specified parts of digestive tract; Z87.440 Personal history of urinary (tract) infections; Z74.01 Bed confinement status
CPT/HCPCS: 36415; 70450; 71045; 71250; 74018; 80048; 80053; 80156; 81001; 81003; 82550; 82607; 82728; 82746; 83036; 83540; 83605; 83690; 83735; 83880; 84100; 84134; 84439; 84443; 84484; 85025; 85045; 85610; 85730; 87040; 87081; 87086; 93005; 96361; 96365; 97112; 99285; C1758; J0456; J0696; J2001; J7030; J7060; Q0092